=== PATIENT | male | born 1960 | race Caucasian/White ===

== ENCOUNTER 2021-11-02 04:54 | Emergency (ER) | payer BC ==
[~2021-11-02] VITALS: Ht 177.8 cm; Wt 108.9 kg
[2021-11-02 05:23] LABS: BASOPHILS % (AUTO) 0.7 % (0.0-5.0); EOSINOPHILS % (AUTO) 1.7 % (0.0-8.0); HEMATOCRIT 42.2 % (42-54); LYMPHOCYTES % (AUTO) 34.9 % (21.0-51.0); MEAN CORPUSCULAR HEMOGLOBIN 29.4 pg (27.0-33.0); MEAN CORPUSCULAR HGB CONC 32.2 g/dL (32.0-36.0); MEAN CORPUSCULAR VOLUME 91.3 fL (79-99); MONOCYTES % (AUTO) 8.7 % (3.0-13.0); NEUTROPHILS % (AUTO) 53.6 % (40.0-77.0); PLATELET COUNT (AUTO) 304 K/uL (130-400); RED BLOOD CELL COUNT(AUTO) 4.62 MIL/uL (4.50-6.20); RED CELL DISTRIBUTION WIDTH 13.8 % (11.0-15.5); WHITE BLOOD COUNT (AUTO) 9.9 K/uL (4.8-10.8)
[2021-11-02 05:34] LABS: POTASSIUM 4.1 mmol/L (3.5-5.1)
[2021-11-02 05:38] LABS: ALBUMIN 3.4 g/dL (3.5-5.0); TOTAL PROTEIN, SERUM 6.9 g/dL (6.0-8.3)
[2021-11-02 05:47] LABS: THYROID STIMULATING HORMONE 3.19 uIU/mL (0.36-3.74)
[2021-11-02] MEDS ORDERED: 0.9%NACL 1000ML 1,000 ML IV SCH (06:00)
[2021-11-02 06:12] LABS: AMPHET/METH SCREEN,URINE NEGATIVE (NEGATIVE); BARBITURATE SCREEN, URINE NEGATIVE (NEGATIVE); BENZODIAZEPINES SCREEN,URINE NEGATIVE (NEGATIVE); CANNABINOID SCREEN,URINE NEGATIVE (NEGATIVE); COCAINE SCREEN,URINE NEGATIVE (NEGATIVE); PHENCYCLIDINE SCREEN,URINE NEGATIVE (NEGATIVE)
[2021-11-02] MEDS ORDERED: IOHEXOL 350 MG/ML 100ML INFUS..BTL IV ONE (06:33)
[2021-11-02 09:44] VITALS: BP 127/61
== END 2021-11-02 09:47 | disposition home or self-care (01) ==
LOC: EDH 04:54
DX: F41.9 Anxiety disorder, unspecified (principal); E86.0 Dehydration; E03.9 Hypothyroidism, unspecified; Z88.0 Allergy status to penicillin
CPT/HCPCS: 99284; 96360; 71275; 84484; 80305; 85378; 36415; 93005; 80050; J7030; Q9967; 80053; 84443; 85025

== ENCOUNTER 2022-09-05 04:18 | Emergency (ER) | payer BC ==
[~2022-09-05] VITALS: Ht 175.3 cm; Wt 102.1 kg
[2022-09-05 04:22] VITALS: BP 132/89
== END 2022-09-05 04:53 | disposition left against medical advice (07) ==
LOC: EDH 04:18
DX: R10.9 Unspecified abdominal pain (principal); Z53.21 Procedure and treatment not carried out due to patient leaving prior to being seen by health care provider
CPT/HCPCS: 93005; 99281